=== PATIENT | female | born 2000 | race Caucasian/White ===

== ENCOUNTER 2023-08-31 20:10 | Emergency (ER) | payer MEDICAID ==
[~2023-08-31] VITALS: Ht 152.4 cm; Wt 64.0 kg
[2023-08-31 20:15] VITALS: TEMP 98.8; O2SAT 98
[2023-08-31] MEDS: DEXAMETHASONE 4MG/ML 1ML VIAL IM ONE (22:20)
[2023-08-31 22:21] VITALS: BP 107/62; PULSE 120; RESP 20
[2023-08-31] MEDS: KETOROLAC 30MG/ML VIAL IM ONE (22:21)
[2023-08-31] MEDS: ACETAMINOPHEN 325MG TABLET PO ONE (22:22)
[2023-08-31] MEDS ORDERED: AMOX1TAB16 MT (23:10)
[2023-08-31] MEDS ORDERED: IBUP-2029 MT (23:10)
== END 2023-09-01 00:12 | disposition home or self-care (01) ==
LOC: ER 20:10
DX: J03.90 Acute tonsillitis, unspecified (principal)
CPT/HCPCS: 99284; 81025; 87430; 87070; 96372; J1100; J1885